=== PATIENT | male | born 1985 | race Caucasian/White ===

== ENCOUNTER 2022-04-13 19:41 | Emergency (ER) | payer OTHER ==
[2022-04-13] MEDS ORDERED: FLUORESCEIN NA 1 EA STRIP OD ONE (19:45)
[2022-04-13] MEDS ORDERED: TETRACAINE 0.5% OPHTH SOLN 2 ML BOTTLE OD ONE (19:45)
[2022-04-13 20:03] VITALS: BP 119/74; PULSE 86; RESP 16; TEMP 99; BMI 21.7
[2022-04-13] MEDS ORDERED: CIPROFLOXACIN 0.3% EYE DROPS 5 ML BOTTLE OD STA (20:18)
[2022-04-13] MEDS ORDERED: CIPROFLOXACIN HCL 0.3% OPHTH 2.5ML BOTTLE ONE (20:19)
== END 2022-04-13 20:40 | disposition home or self-care (01) ==
LOC: FER 19:41
DX: S05.01XA Injury of conjunctiva and corneal abrasion without foreign body, right eye, initial encounter (principal); H10.9 Unspecified conjunctivitis; Y99.8 Other external cause status
CPT/HCPCS: 99283-25

== ENCOUNTER 2023-07-25 10:50 | Emergency (ER) | payer OTHER ==
[2023-07-25 11:22] VITALS: BP 118/66; PULSE 73; RESP 18; TEMP 98; BMI 20.3
[2023-07-25] MEDS ORDERED: SODIUM CHLORIDE 0.9% 500 ML INFUS.BAG IV ONE (11:24)
[2023-07-25] MEDS ORDERED: METOCLOPRAMIDE HCL INJECTION 10 MG/2 ML VIAL IVPB ONE (11:24)
[2023-07-25] MEDS ORDERED: METOCLOPRAMIDE HCL INJECTION 10 MG/2 ML VIAL ONE (11:27)
[2023-07-25 12:07] LABS: HEMATOCRIT 46.1 % (35.4-49); HEMOGLOBIN 15.2 G/dL (11.7-16.9); MCH 28.7 pg (25.7-33.7); MEAN CELL VOLUME 87.2 fl (80-96); MEAN PLT VOLUME 8.7 fl (7.5-11.1); PLATELET COUNT 253.5 10^3/uL (134-434); RBC 5.29 10^6/uL (4.00-5.60); RDW 14.3 % (11.9-15.9); WHITE BLOOD COUNT 14.2 10^3/uL (4.0-10.8)
[2023-07-25 12:19] LABS: PLATELET ESTIMATE ADEQUATE
[2023-07-25 12:27] LABS: ALBUMIN 4.5 g/dl (3.4-5.0); BILIRUBIN,TOTAL 1.3 mg/dl (0.2-1); CALCIUM 9.9 mg/dl (8.5-10.1); POTASSIUM 4.3 mmol/L (3.5-5.1); TOT PROT 7.2 g/dl (6.4-8.2)
== END 2023-07-25 12:34 | disposition home or self-care (01) ==
LOC: FER 10:50
PROC: 3E033NZ Introduction of Analgesics, Hypnotics, Sedatives into Peripheral Vein, Percutaneous Approach (ICD-10-PCS; principal; 2023-07-25)
DX: R11.2 Nausea with vomiting, unspecified (principal); R19.7 Diarrhea, unspecified; Z20.822 Contact with and (suspected) exposure to COVID-19
CPT/HCPCS: 0241U-QW; 36415; 80053; 85027; 99284-25